=== PATIENT | female | born 1995 | race Hispanic/Latino ===

== ENCOUNTER 2019-05-08 14:51 | Emergency (ER) | payer SELFPAY ==
[2019-05-08 15:54] LABS: RAPID GROUP A STREP NEGATIVE (NEGATIVE)
== END 2019-05-08 16:57 | disposition home or self-care (01) ==
LOC: EDH 14:51
DX: Z90.49 Acquired absence of other specified parts of digestive tract (principal); B34.9 Viral infection, unspecified; J01.90 Acute sinusitis, unspecified
CPT/HCPCS: 87804; 87880

== ENCOUNTER 2019-06-27 00:08 | Emergency (ER) | payer BC | END 2019-06-27 00:49 | disposition home or self-care (01) | LOC: EDH 00:08 | DX: J11.1 Influenza due to unidentified influenza virus with other respiratory manifestations (principal); Z90.49 Acquired absence of other specified parts of digestive tract | CPT/HCPCS: 99281 ==

== ENCOUNTER 2020-05-26 14:40 | Emergency (ER) | payer BC, OTHER ==
[2020-05-26 15:14] LABS: RAPID GROUP A STREP NEGATIVE (NEGATIVE)
== END 2020-05-26 16:08 | disposition home or self-care (01) ==
LOC: EDH 14:40
DX: B34.9 Viral infection, unspecified (principal); Z20.828 Contact with and (suspected) exposure to other viral communicable diseases; Z90.49 Acquired absence of other specified parts of digestive tract
CPT/HCPCS: 87426; 87804; 87880

== ENCOUNTER 2022-12-06 19:20 | Emergency (ER) | payer OTHER ==
[~2022-12-06] VITALS: Ht 157.5 cm; Wt 95.3 kg
[2022-12-06 21:59] VITALS: BP 128/89; PULSE 108; RESP 18; O2SAT 99
== END 2022-12-06 22:00 | disposition home or self-care (01) ==
LOC: EDH 19:20
DX: B34.9 Viral infection, unspecified (principal); Z90.49 Acquired absence of other specified parts of digestive tract; Z20.822 Contact with and (suspected) exposure to COVID-19
CPT/HCPCS: 99283; 87635; 87880; 87804 ×2; C9803

== ENCOUNTER 2024-01-14 13:48 | Emergency (ER) | payer MEDICAID ==
[~2024-01-14] VITALS: Ht 160 cm; Wt 92.2 kg
[2024-01-14] MEDS: 0.9%NACL 1000ML 1,000 ML IV ONE (14:12)
[2024-01-14 14:14] LABS: BASOPHILS # (AUTO) 0.03 K/uL (0.00-0.20); BASOPHILS % (AUTO) 0.5 % (0.0-5.0); EOSINOPHILS # (AUTO) 0.53 K/uL (0.00-0.70); EOSINOPHILS % (AUTO) 8.2 % (0.0-8.0); HEMATOCRIT 30.9 % (36-48); IMMATURE GRANULOCYTE ABSOLUTE 0.02 K/uL (0-1); LYMPHOCYTES # (AUTO) 1.6 K/uL (1.0-4.8); LYMPHOCYTES % (AUTO) 24.7 % (21.0-51.0); MEAN CORPUSCULAR HEMOGLOBIN 23.1 pg (27.0-33.0); MEAN CORPUSCULAR HGB CONC 29.4 g/dL (32.0-36.0); MEAN CORPUSCULAR VOLUME 78.4 fL (79-99); MONOCYTES # (AUTO) 0.6 K/uL (0.1-1.0); MONOCYTES % (AUTO) 8.5 % (3.0-13.0); NEUTROPHILS # (AUTO) 3.7 K/uL (1.8-7.7); NEUTROPHILS % (AUTO) 57.8 % (40.0-77.0); PLATELET COUNT (AUTO) 307 K/uL (130-400); RED BLOOD CELL COUNT(AUTO) 3.94 MIL/uL (4.00-5.50); RED CELL DISTRIBUTION WIDTH 16.3 % (11.0-15.5); WHITE BLOOD COUNT (AUTO) 6.4 K/uL (4.8-10.8)
[2024-01-14] MEDS: ketOROlac 30MG VIAL (30MG/ML) IVP ONE (14:14)
[2024-01-14] MEDS: MAG/ALUM/SIMETH 30 ML UDCUP PO ONE ×2 (14:18→14:19)
[2024-01-14] MEDS: FAMOTIDINE 20MG VIAL IV ONE (14:18)
[2024-01-14] MEDS: DICYCLOMINE HCL 10 MG/5 ML ML PO ONE ×2 (14:18)
[2024-01-14] MEDS: LIDOCAINE HCL 2% VISCOUS 15 ML UDCUP PO ONE ×2 (14:18→14:19)
[2024-01-14 14:29] LABS: CREATININE 0.8 mg/dL (0.5-1.0); POTASSIUM 3.2 mmol/L (3.5-5.1)
[2024-01-14 14:35] LABS: ALBUMIN 3.9 g/dL (3.5-5.0); BILIRUBIN,TOTAL 1.3 mg/dL (0.2-1.0); TOTAL PROTEIN, SERUM 8.1 g/dL (6.0-8.3)
[2024-01-14 14:43] LABS: APPEARANCE,URINE TURBID (CLEAR); BILIRUBIN,URINE NEGATIVE (NEGATIVE); COLOR,URINE YELLOW (YELLOW); GLUCOSE, URINE (UA) NEGATIVE (NEGATIVE); KETONES,URINE 150 mg/dL (NEGATIVE); LEUKOCYTE ESTERASE ,URINE 500 Leu/uL (NEGATIVE); NITRATE,URINE NEGATIVE (NEGATIVE); OCCULT BLOOD,URINE NEGATIVE (NEGATIVE); PROTEIN,URINE 70 mg/dL (NEGATIVE)
[2024-01-14 14:49] LABS: ADD UA MICROSCOPIC YES
[2024-01-14 14:53] LABS: BACTERIA,URINE FEW /HPF (None Seen); MUCUS,URINE MANY LPF (None Seen); SQUAMOUS EPITHELIAL CELL,UR FEW /HPF (0-2); WBC,URINE 26-50 /HPF (0-1)
[2024-01-14 14:56] VITALS: BP 133/86; PULSE 88; RESP 11; TEMP 98.8; O2SAT 100
[2024-01-14] MEDS ORDERED: SUCR1TAB28 PO (15:40)
[2024-01-14] MEDS ORDERED: OMEP40CA21 PO (15:40)
[2024-01-14] MEDS ORDERED: AMOX1TAB16 PO (15:40)
[2024-01-14] MEDS: PoTASSium chloRIDE 20MEQ ER 20 MEQ ERTAB PO ONE (15:45)
== END 2024-01-14 15:48 | disposition home or self-care (01) ==
LOC: EDH 13:48
DX: K29.00 Acute gastritis without bleeding (principal); E87.6 Hypokalemia; N30.01 Acute cystitis with hematuria; R11.2 Nausea with vomiting, unspecified
CPT/HCPCS: 36415; 76705; 80053; 81001; 83690; 85025; 87086; 96361; 96374; 96375; J1885; J3490; J7030